=== PATIENT | male | born 1955 | race Caucasian/White ===

== ENCOUNTER 2018-06-17 19:39 | Emergency (ER) | payer OTHER ==
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
[2018-06-17 21:42] VITALS: TEMP 97.8
[2018-06-17] MEDS: MORPHINE SULFATE INJ 10 MG/ML VIAL IV ONE (21:52)
[2018-06-17] MEDS ORDERED: NEOMYCIN-BACITRACIN-POLYMYXIN 0.9 GM UD TOP ONE (23:32)
[2018-06-17] MEDS: HYDROcodone 5MG/APAP 325MG 1 EA TAB PO ONE (23:34)
[2018-06-18 00:08] VITALS: BP 148/88; O2SAT 98
== END 2018-06-18 00:08 | disposition home or self-care (01) ==
LOC: ER 19:39
DX: S06.0X0A Concussion without loss of consciousness, initial encounter (principal); S82.831A Other fracture of upper and lower end of right fibula, initial encounter for closed fracture; S63.92XA Sprain of unspecified part of left wrist and hand, initial encounter; M54.2 Cervicalgia; S00.81XA Abrasion of other part of head, initial encounter; S80.811A Abrasion, right lower leg, initial encounter; M54.5 Low back pain; I10 Essential (primary) hypertension; V49.88XA Car occupant (driver) (passenger) injured in other specified transport accidents, initial encounter; Y92.410 Unspecified street and highway as the place of occurrence of the external cause; Z88.0 Allergy status to penicillin

== ENCOUNTER → 2018-07-06 | Outpatient (CLI) | payer OTHER ==
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
== END ==
LOC: RAD 07:54
PROVIDERS: ATTEND Orthopaedic Surgery
DX: M25.571 Pain in right ankle and joints of right foot (principal)